=== PATIENT | male | born 1950 | race Caucasian/White ===

== ENCOUNTER 2022-07-08 11:57 | Day surgery (SDC) | payer OTHER ==
[~2022-07-08] VITALS: Ht 172.7 cm; Wt 91.7 kg
[~2022-07-08 11:57] MED LIST: ALBU90OI INH; CLOP75 PO; Crestor20 MG PO; EZET10 PO; GABA300; GABA300 PO; KETO15TC; METO25 PO; NITR.4SL SL; TIOT18 INH; Vitamin D1000 UNI1 PO; XARELTO2.5 MG PO
--- NOTE | 2022-07-08 17:14 | NUR ---
PT SITTING UP IN BED, EATING DINNER. BOTH R GROIN AND L PT SITE STABLE.
--- NOTE | 2022-07-08 17:23 | NUR ---
DISCHARGE REVIEWED WITH PT AND WITH . BOTH VERBALIZE UNDERSTANDING OF INSTRUCTIONS. PT BECAME NAUSEATED AND HAD A 300 CC EMESIS. STATES HE FEELS BETTER AFTER VOMITING. WILL CONTINUE TO MONITOR
--- NOTE | 2022-07-08 17:40 | NUR ---
PT TO AND FROM BATHROOM. BOTH SITES STABLE. PT GETTING DRESSED AT THIS TIME PER SELF. SALINE LOCK REMOVED WITH CATHETER INTACT.
--- NOTE | 2022-07-08 17:51 | NUR ---
PT TO PRIVATE VEHICLE PER W/C WITH ONE STAFF.
== END 2022-07-08 18:00 | disposition home or self-care (01) ==
LOC: MHTC 11:57
DX: I73.9 Peripheral vascular disease, unspecified (principal); I10 Essential (primary) hypertension; I25.10 Atherosclerotic heart disease of native coronary artery without angina pectoris; E78.5 Hyperlipidemia, unspecified; Z95.1 Presence of aortocoronary bypass graft; Z79.899 Other long term (current) drug therapy; Z79.01 Long term (current) use of anticoagulants; Z87.891 Personal history of nicotine dependence; Z88.8 Allergy status to other drugs, medicaments and biological substances
CPT/HCPCS: 76937; 85347; 99152; 99153; C1725; C1760; C1769; C1887; C1894; J1644; J2250; J3010; J7030; J7050; Q9967

== ENCOUNTER 2023-02-02 08:04 | Emergency (ER) | payer OTHER ==
[~2023-02-02] VITALS: Ht 172.7 cm; Wt 90.7 kg
[~2023-02-02 08:04] MED LIST changes: +XARELTO20 MG PO
[2023-02-02 08:44] LABS: BASOPHILS ABSOLUTE AUTO 0.04 K/mm3 (0.00-0.23); BASOPHILS PERCENT AUTO 0 % (0-2); EOSINOPHILS ABSOLUTE AUTO 0.03 K/mm3 (0.00-0.68); EOSINOPHILS PERCENT AUTO 0 % (0-6); Hematocrit 44.4 % (37.0-53.0); Hemoglobin 15.7 g/dL (13.5-17.5); IMMATURE GRAN ABSOLUTE AUTO 0.05 K/mm3 (0.00-0.10); IMMATURE GRAN PERCENT AUTO 0 % (0-1); LYMPHOCYTES ABSOLUTE AUTO 1.52 K/mm3 (0.84-5.20); LYMPHOCYTES PERCENT AUTO 11 % (21-46); MONOCYTES ABSOLUTE AUTO 1.13 K/mm3 (0.16-1.47); MONOCYTES PERCENT AUTO 8 % (4-13); Mean Corpuscular HGB 31.1 pg (26.0-34.0); Mean Corpuscular HGB Conc 35.4 g/dL (31.5-36.5); Mean Corpuscular Volume 88 fL (80-100); Mean Platelet Volume 10.1 fL (9.1-12.4); NEUTROPHILS ABSOLUTE AUTO 11.48 K/mm3 (1.96-9.15); NEUTROPHILS PERCENT AUTO 81 % (41-73); Platelet Count 271 K/mm3 (150-400); RDW Coefficient Variation 13.8 % (11.7-14.2); RDW Standard Deviation 44.5 fL (35.1-46.3); Red Blood Cell Count 5.05 M/mm3 (4.30-5.90); White Blood Cell Count 14.25 K/mm3 (4.00-11.30)
[2023-02-02 09:13] LABS: Albumin, Blood 4.4 g/dL (3.4-5.0); Albumin/Globulin Ratio 1.2 (0.8-1.8); Bilirubin, Total 0.9 mg/dL (0.1-1.0); Bun/Creatinine Ratio 16.4 (12.0-20.0); Calcium, Blood 9.4 mg/dL (8.5-10.1); Creatinine, Blood 0.79 mg/dL (0.60-1.20); Globulin, Blood 3.6 g/dL (2.2-4.0)
[2023-02-02 10:55] LABS: Source, Urine Clean Catch
[2023-02-02 11:00] LABS: Appearance, Urine Hazy (Clear); Bilirubin, Urine Neg (Neg); Blood, Urine 5+ (Neg); Color, Urine Yellow (P-Yellow); Glucose Qualitative, Urine Neg (Neg); Ketones, Urine 3+ (Neg); Leukocyte Esterase, Urine 1+ (Neg); Nitrite, Urine Neg (Neg); Protein, Urine 2+ (Neg); Specific Gravity, Urine 1.015 (1.003-1.022); Urobilinogen, Urine 2+ (Normal)
[2023-02-02 11:13] LABS: Bacteria Few /hpf; Red Blood Cells, Urine TNTC /hpf (0-2); Squamous Epithelial Cells Few /hpf (Few)
[2023-02-02] MEDS ORDERED: HYDR1TAB94 PO (11:45)
[2023-02-02] MEDS ORDERED: TAMS.4ER PO (11:45)
[2023-02-02] MEDS ORDERED: CEPH500 PO (11:45)
[2023-02-02] MEDS ORDERED: POTA10T PO (11:46)
[2023-02-02 11:58] VITALS: BP 141/84
== END 2023-02-02 11:59 | disposition home or self-care (01) ==
LOC: ER 08:04
PROVIDERS: Emergency Medicine
DX: N39.0 Urinary tract infection, site not specified (principal); E87.6 Hypokalemia; J45.909 Unspecified asthma, uncomplicated; I25.10 Atherosclerotic heart disease of native coronary artery without angina pectoris; Z88.8 Allergy status to other drugs, medicaments and biological substances; Z79.899 Other long term (current) drug therapy
CPT/HCPCS: 74177; 80053; 81001; 83690; 85025; 87086; 96374; 96375; 99284-25; J2405; J3010; Q9967

== ENCOUNTER 2023-02-10 13:03 | Emergency (ER) | payer OTHER ==
[~2023-02-10] VITALS: Ht 172.7 cm; Wt 90.7 kg
[~2023-02-10 13:03] MED LIST changes: +CEPH500 PO; +HYDR1TAB94 PO; +POTA10T PO; +TAMS.4ER PO
[2023-02-10 13:55] LABS: Source, Urine Clean Catch
[2023-02-10 13:59] LABS: Bilirubin, Urine Neg (Neg); Blood, Urine 5+ (Neg); Color, Urine Yellow (P-Yellow); Glucose Qualitative, Urine Neg (Neg); Ketones, Urine 1+ (Neg); Leukocyte Esterase, Urine Neg (Neg); Nitrite, Urine Neg (Neg); Protein, Urine 2+ (Neg); Urobilinogen, Urine NORM (Normal)
[2023-02-10 14:11] LABS: Appearance, Urine Hazy (Clear)
[2023-02-10 14:13] LABS: Amorphous Light (0-Heavy); Bacteria Mod /hpf; Mucus Mod (0-Heavy); Red Blood Cells, Urine 25-50 /hpf (0-2); Squamous Epithelial Cells Rare /hpf (Few)
[2023-02-10 14:15] LABS: BASOPHILS ABSOLUTE AUTO 0.03 K/mm3 (0.00-0.23); BASOPHILS PERCENT AUTO 0 % (0-2); EOSINOPHILS ABSOLUTE AUTO 0.01 K/mm3 (0.00-0.68); EOSINOPHILS PERCENT AUTO 0 % (0-6); Hematocrit 42.8 % (37.0-53.0); IMMATURE GRAN ABSOLUTE AUTO 0.08 K/mm3 (0.00-0.10); IMMATURE GRAN PERCENT AUTO 0 % (0-1); LYMPHOCYTES ABSOLUTE AUTO 1.11 K/mm3 (0.84-5.20); LYMPHOCYTES PERCENT AUTO 6 % (21-46); MONOCYTES ABSOLUTE AUTO 0.87 K/mm3 (0.16-1.47); MONOCYTES PERCENT AUTO 4 % (4-13); Mean Corpuscular HGB 31.4 pg (26.0-34.0); Mean Corpuscular Volume 90 fL (80-100); Mean Platelet Volume 10.3 fL (9.1-12.4); NEUTROPHILS ABSOLUTE AUTO 17.84 K/mm3 (1.96-9.15); NEUTROPHILS PERCENT AUTO 89 % (41-73); Platelet Count 307 K/mm3 (150-400); RDW Coefficient Variation 13.8 % (11.7-14.2); RDW Standard Deviation 45.8 fL (35.1-46.3); Red Blood Cell Count 4.78 M/mm3 (4.30-5.90); White Blood Cell Count 19.94 K/mm3 (4.00-11.30)
[2023-02-10 14:28] LABS: Albumin/Globulin Ratio 1.1 (0.8-1.8); Bilirubin, Total 0.6 mg/dL (0.1-1.0); Bun/Creatinine Ratio 11.5 (12.0-20.0); Calcium, Blood 9.4 mg/dL (8.5-10.1); Creatinine, Blood 0.87 mg/dL (0.60-1.20); Globulin, Blood 3.6 g/dL (2.2-4.0); Potassium, Blood 3.3 mmol/L (3.5-5.5); Total Protein, Blood 7.6 g/dL (6.4-8.2)
[2023-02-10] MEDS ORDERED: PROM25 PO (17:55)
[2023-02-10] MEDS ORDERED: OXYC5 PO (17:55)
[2023-02-10 18:00] VITALS: BP 187/92
== END 2023-02-10 18:09 | disposition home or self-care (01) ==
LOC: ER 13:03
PROVIDERS: Physician Assistant
DX: N13.2 Hydronephrosis with renal and ureteral calculous obstruction (principal); Z79.01 Long term (current) use of anticoagulants; Z79.02 Long term (current) use of antithrombotics/antiplatelets; Z79.899 Other long term (current) drug therapy
CPT/HCPCS: 74177; 80053; 81001; 83690; 85025; A9270; J2405; Q9967